=== PATIENT | male | born 1955 | race Caucasian/White ===

== ENCOUNTER 2017-04-13 08:07 | Day surgery (SDC) | payer SELFPAY ==
[2017-04-02 13:23] VITALS: BMI 24.8
[~2017-04-13 08:07] MED LIST: CYCLOPENTOLATE HCL 1% OPHTH SOLN 2 ML BOTTLE OS SCH; FLURBIPROFEN 0.03% OPHTH SOLN 2.5 ML BOTTLE OS SCH; GENTAMICIN SULFATE 0.3% OPHTHALMIC (EYE DROPS) 5ML BOTTLE OS SCH; PHENYLEPHRINE 2.5% OPHTH SOLN 15 ML BOTTLE OS SCH; TROPICAMIDE 1% OPHTH SOLN 15 ML BOTTLE OS SCH
[2017-04-13 08:45] VITALS: TEMP 97.6
[2017-04-13] MEDS: FLURBIPROFEN 0.03% OPHTH SOLN 2.5 ML BOTTLE ONE ×5 (08:45→09:05)
[2017-04-13] MEDS: CYCLOPENTOLATE HCL 1% OPHTH SOLN 2 ML BOTTLE ONE ×5 (08:45→09:05)
[2017-04-13] MEDS: TROPICAMIDE 1% OPHTH SOLN 15 ML BOTTLE ONE ×5 (08:45→09:05)
[2017-04-13] MEDS: PHENYLEPHRINE 2.5% OPHTH SOLN 15 ML BOTTLE ONE ×5 (08:45→09:05)
[2017-04-13] MEDS: GENTAMICIN SULFATE 0.3% OPHTHALMIC (EYE DROPS) 5ML BOTTLE ONE ×5 (08:45→09:05)
[2017-04-13] MEDS ORDERED: MIDAZOLAM HCL 2 MG/2 ML SINGLE DOSE VIAL ONE (09:13)
[2017-04-13] MEDS ORDERED: ACETAMINOPHEN 325 MG TABLET (FP) PO PRN (10:11)
[2017-04-13 11:02] VITALS: BP 117/62; PULSE 52
--- NOTE | 2017-04-13 16:52 | OP ---
DATE OF OPERATION: 04/13/2017 AGE: [age] years old SEX: Male. PREOPERATIVE DIAGNOSIS: Cataract, left eye. POSTOPERATIVE DIAGNOSIS: Cataract, left eye. PROCEDURE: Cataract extraction via phacoemulsification with insertion of posterior chamber lens implant, left eye. SURGEON: Jd Tran MD [employer] COACH: Grace Thomas MD ANESTHESIA: Regional with sedation. ESTIMATED BLOOD LOSS: Less than 1 mL. COMPLICATIONS: None. SPECIMENS: None. DESCRIPTION OF PROCEDURE: The patient was identified in the holding area. After all risks, benefits, and alternatives were explained to the patient, informed consent was obtained. The left eye was marked with a marking pen. The patient then entered the operating room on an eye stretcher. After a formal timeout was performed, a 3-mL injection of equal parts of 2% lidocaine with epinephrine and 0.5% Marcaine was given around the left eye. The left eye was then prepped and draped in the usual sterile fashion. An eyelid speculum was placed beneath the eyelids of the left eye. An inferotemporal paracentesis incision was created using 15-degree blade. Viscoelastic was injected into the anterior chamber. A 2.4-mm keratome blade was then used to make a superotemporal incision. A 360-degree, continuous curvilinear capsulorrhexis was then created using bent cystotome and Utrata forceps. Hydrodissection was performed with balanced saline solution on a cannula. Phacoemulsification was introduced to disassemble and remove the nucleus in its entirety. Irrigation/aspiration was then used to remove any remaining cortical material from the eye. The capsular bag was then refilled using viscoelastic. An Aries model SN60WF with a power of 17.0 diopters, serial number [id number], was inspected and found to be defect free and injected into the capsular bag. Irrigation/aspiration was then used to remove any remaining viscoelastic from the eye. The anterior chamber was reformed using balanced saline solution. Intracameral injections of Miochol and Miostat were then given to the left eye. All wounds were hydrated with balanced saline solution and noted to be watertight. The anterior chamber was deep, the eye had an adequate pressure, the lens was perfectly centered in the capsular bag, and there was a red reflex present. Topical antibiotic eye drops and ointment were then administered to the left eye. The eyelid speculum was removed from the left eye. The left eye was patched and shielded. The patient tolerated the procedure well and left the operating room in stable condition to follow up in the eye clinic tomorrow morning at 9:00. JD TRAN M.D. [id number]
== END 2017-04-13 11:15 | disposition home or self-care (01) ==
LOC: FASU 08:07
PROVIDERS: ATTEND Ophthalmology
PROC: 08RK3JZ Replacement of Left Lens with Synthetic Substitute, Percutaneous Approach (ICD-10-PCS; principal; 2017-04-13 09:40)
DX: H26.8 Other specified cataract (principal)

== ENCOUNTER 2017-07-20 06:19 | Day surgery (SDC) | payer SELFPAY ==
[2017-07-14 15:29] VITALS: BMI 25.1
[2017-07-20] MEDS: PHENYLEPHRINE 2.5% OPHTH SOLN 15 ML BOTTLE ONE ×5 (07:15→07:35)
[2017-07-20] MEDS: TROPICAMIDE 1% OPHTH SOLN 15 ML BOTTLE ONE ×5 (07:15→07:35)
[2017-07-20] MEDS: KETOROLAC TROMETHAMINE 0.5% 5 ML BOTTLE OPTHALMIC ONE ×5 (07:15→07:35)
[2017-07-20] MEDS: CYCLOPENTOLATE HCL 1% OPHTH SOLN 2 ML BOTTLE ONE ×5 (07:15→07:35)
[2017-07-20] MEDS: GENTAMICIN SULFATE 0.3% OPHTHALMIC (EYE DROPS) 5ML BOTTLE ONE ×5 (07:15→07:35)
[2017-07-20 07:23] VITALS: TEMP 97.6
[2017-07-20] MEDS ORDERED: BACITRACIN/POLYMYXIN OPH OINT 3.5 GM TUBE ONE (07:37)
[2017-07-20] MEDS ORDERED: BETAXOLOL HCL 0.25% OPHTHALMIC 10 ML DROPSBTL ONE (07:37)
[2017-07-20] MEDS ORDERED: LIDOCAINE HCL/PF 2% SDV 5ML VIAL ONE (07:38)
[2017-07-20] MEDS ORDERED: ACETYLCHOLINE 1:100 INTRA-OCUL 20 MG/2 ML KIT ONE (07:39)
[2017-07-20] MEDS ORDERED: NEO/POLYMYX B SULF/DEXAMETH OPHTHALMIC 5ML BOTTLE ONE (07:39)
[2017-07-20] MEDS ORDERED: BUPIVACAINE HCL/PF 0.5% (5MG/ML) 10 ML VIAL ONE (07:39)
[2017-07-20] MEDS ORDERED: TETRACAINE 0.5% OPHTH SOLN 2 ML BOTTLE ONE (07:39)
[2017-07-20] MEDS ORDERED: POVIDONE-IODINE 5% OPHTHALMIC PREP 30 ML SOLUTION ONE (07:39)
[2017-07-20] MEDS ORDERED: TROPICAMIDE 1% OPHTH SOLN 15 ML BOTTLE OD SCH (08:00)
[2017-07-20] MEDS ORDERED: PHENYLEPHRINE 2.5% OPHTH SOLN 15 ML BOTTLE OD SCH (08:00)
[2017-07-20] MEDS ORDERED: CYCLOPENTOLATE HCL 1% OPHTH SOLN 2 ML BOTTLE OD SCH (08:00)
[2017-07-20] MEDS ORDERED: GENTAMICIN SULFATE 0.3% OPHTHALMIC (EYE DROPS) 5ML BOTTLE OD SCH (08:00)
[2017-07-20] MEDS ORDERED: KETOROLAC TROMETHAMINE 0.5% 5 ML BOTTLE OPTHALMIC OD SCH (08:00)
[2017-07-20] MEDS ORDERED: PROPOFOL 20 ML ONE ×4 (08:05)
[2017-07-20] MEDS ORDERED: SUCCINYLCHOLINE CHLORIDE 200 MG/10 ML VIAL ONE (08:06)
[2017-07-20] MEDS ORDERED: ePHEDrine SULFATE 50 MG/1 ML AMPULE ONE (08:06)
[2017-07-20] MEDS ORDERED: ACETAMINOPHEN 325 MG TABLET (FP) PO PRN (09:19)
[2017-07-20 10:41] VITALS: BP 110/79; PULSE 56
--- NOTE | 2017-07-20 11:14 | OP ---
DATE OF OPERATION: 07/20/2017 PREOPERATIVE DIAGNOSIS: Cataract, right eye. POSTOPERATIVE DIAGNOSIS: Cataract right eye. PROCEDURE: Cataract extraction via phacoemulsification and insertion of posterior chamber intraocular lens implant, right eye. SURGEON: Jd Cool MD [employer]PER[employer] SURGEON: Grace Thomas MD ANESTHESIA: Regional with sedation. COMPLICATIONS: None. ESTIMATED BLOOD LOSS: Less than 1 mL. SPECIMENS: None. PROCEDURE IN DETAIL: The patient was identified in the holding area. After all risks, benefits and alternatives were explained to the patient informed consent was obtained. The right eye was marked with a marking pen. The patient then entered the operating room on an eye stretcher. After a formal timeout was performed a 3-mL injection of equal parts 2% lidocaine with epinephrine and 0.5% Marcaine was given around the right eye. The right eye was then prepped and draped in the usual sterile fashion. An eyelid speculum was placed beneath the eyelids of the right eye. An supratemporal paracentesis incision was created using a 15-degree blade. Viscoelastic was injection into the anterior chamber. A 2.4-mm keratome layer was then used to make a infratemporal incision. A 360-degree continuous curvilinear capsulorrhexis was created using bent cystotome and Utrata forceps. Hydrodissection was performed using balance saline solution on a cannula. Phacoemulsification was introduced to disassemble and removed the nucleus in it entirety. Irrigation/aspiration was then used to remove any remaining cortical material from the eye. Viscoelastic was then injected to reform the capsular bag. An Aries model SM60WF with a power of 16.5 diopters serial number [id number] inspected and found to be defect free and injected into the capsular bag. Irrigation/aspiration was then used to remove any remaining viscoelastic from the eye. Balance saline solution was then used to reconstitute the anterior chamber. Intra injections of Miochol and Miostat were then administered. The pupil came down and was round. All wounds were hydrated with balance saline solution. Of note, the main wound was noted to have a small leak so it was closed using an interrupted 10-0 nylon suture which was then buried. All wounds were tested and found to be water tight. The eye had adequate pressure. The anterior chamber was deep. The lens was perfectly centered in the capsular bag and there was a red reflex present. Topical antibiotic eye drops and ointment were then administered to the right eye. The eyelid speculum was removed from the right eye. The right eye was patched and shielded. The patient tolerated the procedure well and left the operating room in stable condition to follow up in the eye clinic tomorrow morning at 9 o'clock. Mateo [id number]
== END 2017-07-20 10:35 | disposition home or self-care (01) ==
LOC: FASU 06:19
PROVIDERS: ATTEND Ophthalmology
PROC: 08RJ3JZ Replacement of Right Lens with Synthetic Substitute, Percutaneous Approach (ICD-10-PCS; principal; 2017-07-20 08:31)
DX: H26.8 Other specified cataract (principal)